=== PATIENT | male | born 1975 | race African-American/Black ===

== ENCOUNTER 2016-12-02 11:00 | Inpatient (IN) | payer OTHER ==
[2016-12-02 15:01] VITALS: BMI 31.4
--- NOTE | 2016-12-02 17:41 | HP ---
COWS - Scale Resting Pulse: 2= [place] 101-120 Sweatin= Chills/Flushing Restless Observation: 3= Extraneous Movement Pupil Size: 0= Normal to Room Light Bone or Joint Aches: 2= Severe Diffuse Aches Runny Nose/ Eye Tearin= Runny Nose/Eyes GI Upset > 30mins: 2= Nausea/Diarrhea Tremor Observation: 2= Slight Tremor Visible Yawning Observation: 0= None Anxiety or Irritability: 2=Irritable/Anxious Goose Flesh Skin: 0=Smooth Skin COWS Score: 16 CIWA Score - CIWA Score Nausea/Vomitin-Mild Nausea/No Vomiting Muscle Tremors: 4-Moderate,w/Arms Extend Anxiety: 4-Mod. Anxious/Guarded Agitation: 4-Moderately Restless Paroxysmal Sweats: 1-Minimal Palms Moist Orientation: 1-Uncertain about Date Tacttile Disturbances: 0-None Auditory Disturbances: 0-None Visual Disturbances: 0-None Headache: 1-Very Mild CIWA-Ar Total Score: 16 Admission [facility] - HPI Chief Complaint: WITHDRAWAL SX Allergies/Adverse Reactions: Allergies Allergy/AdvReac Type Severity Reaction Status Date / Time No Known Allergies Allergy Verified 12/02/16 17:24 History of Present Illness: 41 YEARS OLD MALE WITH LONG HISTORY OF ALCOHOL OPIOID NICOTINE DEPENDENCE DENIES MEDICAL ISSUE HAS BIPOLAR II IS ADMITTED TO DETOX Exam Limitations: No Limitations - Ebola screening Have you traveled outside of the country in the last 21 days: No Have you had contact with anyone from an Ebola affected area: No Have you been sick,other than usual withdrawal symptoms: No Do you have a fever: No - Review of Systems Constitutional: Chills, Changes in sleep, Weight Stable EENT: reports: No Symptoms Reported Respiratory: reports: No Symptoms reported Cardiac: reports: No Symptoms Reported GI: reports: Nausea, Poor Fluid Intake, Indigestion, Abdominal cramping : reports: No Symptoms Reported Musculoskeletal: reports: Back Pain, Joint Pain, Muscle Pain, Neck Pain Integumentary: reports: No Symptoms Reported Neuro: reports: Tremors Endocrine: reports: No Symptoms Reported Hematology: reports: No Symptoms Reported Psychiatric: reports: Judgement Intact, Anxious, Depressed Other Systems: Reviewed and Negative Patient History - Patient Medical History Hx Anemia: No Hx Asthma: No Hx Chronic Obstructive Pulmonary Disease (COPD): No Hx Cancer: No Hx Cardiac Disorders: No Hx Congestive Heart Failure: No Hx Hypertension: No Hx Hypercholesterolemia: No Hx Pacemaker: No HX Cerebrovascular Accident: No Hx Seizures: No Hx Dementia: No Hx Diabetes: No Hx Gastrointestinal Disorders: No Hx Liver Disease: No Hx Genitourinary Disorders: No Hx Sexually Transmitted Disorders: No Hx Renal Disease (ESRD): No Hx Thyroid Disease: No Hx Human Immunodeficiency Virus (HIV): No Hx Hepatitis C: No Hx Depression: No Hx Suicide Attempt: No Hx Bipolar Disorder: Yes Hx Schizophrenia: No - Patient Surgical History Past Surgical History: No - PPD History Previous Implant?: Yes Documented Results: Negative w/o proof Implanted On Prior [facility] Admission?: No PPD to be Administered?: Yes - Smoking Cessation Smoking history: Current every day smoker Have you smoked in the past 12 months: Yes Aproximately how many cigarettes per day: 15 Cigars Per Day: 0 Hx Chewing Tobacco Use: No Initiated information on smoking cessation: Yes 'Breaking Loose' booklet given: 12/02/16 - Substance & Tx. History Hx Alcohol Use: Yes Hx Substance Use: Yes Substance Use Type: Alcohol, Marijuana, Opiates Hx Substance Use Treatment: Yes - Substances Abused Heroin Route: Inhalation Frequency: Daily Amount used: 4-10 bags Age of first use: 35 Date of Last Use: 12/01/16 Alcohol Route: Oral Frequency: Daily Amount used: 3 24 oz beer/ 1 pint vodka Age of first use: 18 Date of Last Use: 12/02/16 Family Disease History - Family Disease History Family Disease History: Diabetes: Father, Mother, [place]: Grandparent () Admission Physical Exam S - Vital Signs Vital Signs: Vital Signs - 24 hr 12/02/16 14:58 Temperature 98.5 F Pulse Rate 115 H Respiratory 20 Rate Blood Pressure 132/81 - Physical General Appearance: Yes: Appropriately Dressed, Obese, Tremorous, Irritable, Sweating, Anxious HEENTM: Yes: Hearing grossly Normal, Normal ENT Inspection, Normocephalic, Normal Voice Respiratory: Yes: Chest Non-Tender, Lungs Clear, Normal Breath Sounds, No Respiratory Distress, No Accessory Muscle Use Neck: Yes: Supple, Trachea in good position Breast: Yes: Breasts Symetrical Cardiology: Yes: Regular Rhythm, S1, S2, Tachycardia Abdominal: Yes: Non Tender, Soft Genitourinary: Yes: Within Normal Limits Back: Yes: Normal Inspection Musculoskeletal: Yes: full range of Motion, Gait Steady, Back pain, Muscle Pain Extremities: Yes: Normal Inspection, Normal Range of Motion, Non-Tender, Tremors Neurological: Yes: Alert, Motor Strength 5/5, Normal Response, Depressed Affect Integumentary: Yes: Warm Lymphatic: Yes: Within Normal Limits - Diagnostic (1) Alcohol dependence with uncomplicated withdrawal Current Visit: Yes Status: Acute (2) Opioid dependence with withdrawal Current Visit: Yes Status: Acute (3) Nicotine dependence Current Visit: Yes Status: Acute Qualifiers: Nicotine product type: cigarettes Substance use status: in withdrawal Qualified Code(s): F17.213 - Nicotine dependence, cigarettes, with withdrawal (4) GERD (gastroesophageal reflux disease) Current Visit: Yes Status: Chronic Qualifiers: Esophagitis presence: without esophagitis Qualified Code(s): K21.9 - Gastro-esophageal reflux disease without esophagitis (5) Bipolar II disorder Current Visit: Yes Status: Suspected Comment: [place] LEVEL PENDING BHS Breath Alcohol Content Breath Alcohol Content: 0 Urine Drug Screen - Results Drug Screen Negative: No Urine Drug Screen Results: THC-Marijuana, OPI-Opiates
[2016-12-02] MEDS ORDERED: MENTHOL/PHENOL 1 EACH UD MM PRN (17:46)
[2016-12-02] MEDS ORDERED: guaiFENesin/D-METHORPHAN HB 10 ML UNIT-DOSE CUPS PO PRN (17:46)
[2016-12-02] MEDS ORDERED: METHADONE HCL 10 MG TABLET (FOR DETOX USE ONLY) PO ONE ×2 (17:46→23:00)
[2016-12-02] MEDS ORDERED: MAGNESIUM HYDROX 2400MG/30ML ORAL SUSPENSION 30 ML CUP PO PRN (17:46)
[2016-12-02] MEDS ORDERED: NICOTINE POLACRILEX 4 MG GUM BC PRN (17:46)
[2016-12-02] MEDS ORDERED: MAGNESIUM CITRATE 300 ML BOTTLE PO PRN (17:46)
[2016-12-02] MEDS ORDERED: P-EPHED 60MG/TRIPROLIDI 2.5MG TABLET PO PRN (17:46)
[2016-12-02] MEDS ORDERED: MAG HYDROX/AL HYDROX/SIMETH 30 ML UNIT-DOSE CUP PO PRN (17:46)
[2016-12-02] MEDS ORDERED: LOPERAMIDE HCL 2 MG CAPSULE PO PRN (17:46)
[2016-12-02] MEDS ORDERED: NICOTINE 21 MG/24 HOURS TOPICAL PATCH TD PRN (18:30)
[2016-12-02] MEDS ORDERED: METHADONE HCL 10 MG TABLET (FOR DETOX USE ONLY) ONE (19:54)
[2016-12-02] MEDS: chlordiazePOXIDE HCL 25 MG CAPSULE PO PRN (19:57)
[2016-12-02] MEDS: chlordiazePOXIDE HCL 25 MG CAPSULE PO SCH (22:12)
[2016-12-02] MEDS: RANITIDINE HCL 150 MG TABLET (FP) PO SCH (22:12)
[2016-12-02] MEDS: THIAMINE HCL 100 MG TABLET (FP) PO SCH (22:12)
[2016-12-02] MEDS: diphenhydrAMINE HCL 50 MG CAPSULE PO PRN (22:14)
[2016-12-02] MEDS: ACETAMINOPHEN 325 MG TABLET (FP) PO PRN (22:15)
[2016-12-03 01:57] LABS: URINE APPEARANCE CLOUDY; URINE BILIRUBIN NEGATIVE (NEGATIVE); URINE BLOOD NEGATIVE (NEGATIVE); URINE COLOR YELLOW; URINE GLUCOSE (UA) NEGATIVE (NEGATIVE); URINE KETONE NEGATIVE (NEGATIVE); URINE LEUK ESTERASE NEGATIVE (NEGATIVE); URINE NITRITE NEGATIVE (NEGATIVE); URINE PROTEIN NEGATIVE (NEGATIVE); URINE UROBILINOGEN NEGATIVE E.U./dl (0.2-1.0)
[2016-12-03] MEDS: chlordiazePOXIDE HCL 25 MG CAPSULE PO PRN (02:39)
[2016-12-03] MEDS: chlordiazePOXIDE HCL 25 MG CAPSULE PO SCH ×4 (06:06→22:45)
[2016-12-03] MEDS: ACETAMINOPHEN 325 MG TABLET (FP) PO PRN ×2 (09:24→22:23)
[2016-12-03] MEDS ORDERED: METHADONE HCL 10 MG TABLET (FOR DETOX USE ONLY) PO SCH (10:00)
[2016-12-03] MEDS: PRENATAL VITAMINS W/ FOLIC ACID TABLET (FP) PO SCH (10:14)
[2016-12-03] MEDS: RANITIDINE HCL 150 MG TABLET (FP) PO SCH ×2 (10:14→22:24)
[2016-12-03] MEDS: CYCLOBENZAPRINE HCL 10 MG TABLET (FP) PO PRN ×2 (10:15→22:27)
[2016-12-03 10:45] LABS: MCH 23.1 pg (25.7-33.7); MCHC 31.4 g/dl (32.0-35.9); MEAN CELL VOLUME 73.4 fl (80-96); MEAN PLT VOLUME 8.6 fl (7.5-11.1); PLATELET COUNT 261 K/MM3 (134-434); RDW 16.2 % (11.9-15.9); WHITE BLOOD COUNT 11.8 K/mm3 (4.0-10.0)
[2016-12-03 11:31] LABS: ALK PHOS 60 U/L (45-117); ANION GAP 11 (8-16); BILIRUBIN,TOTAL 0.5 mg/dL (0.2-1.0); CALCIUM 9.6 mg/dL (8.5-10.1); CO2 26 mmol/L (21-32); COCKROFT - GAULT 127.3; CREATININE 1.2 mg/dL (0.7-1.3); GLUCOSE,RANDOM 76 mg/dL (74-106); SGOT/AST 22 U/L (15-37); SGPT/ALT 25 U/L (12-78)
--- NOTE | 2016-12-03 12:54 | CONSULT ---
[facility] Psychiatric Consult - Data Date of interview: 12/03/16 Admission source: [facility] Identifying data: First admission to [facility] for this 41 y/o AA male seeking detox treatment for alcohol,heroin,cocaine and marijuana dependence.Patient is single,a father of two,homeless,unemployed and supported on [facility] benefits. Substance Abuse History: - Smoking Cessation. Smoking history: Current every day smoker. Have you smoked in the past 12 months: Yes. Aproximately how many cigarettes per day: 15. Cigars Per Day: 0. Hx Chewing Tobacco Use: No. Initiated information on smoking cessation: Yes. 'Breaking Loose' booklet given : 12/02/16. - Substance & Tx. History. Hx Alcohol Use: Yes. Hx Substance Use : Yes. Substance Use Type: Alcohol, Marijuana, Opiates. Hx Substance Use Treatment: Yes. - Substances Abused. Heroin. Route: Inhalation. Frequency : Daily. Amount used: 4-10 bags. Age of first use: 35. Date of Last Use: . Alcohol. Route: Oral. Frequency: Daily. Amount used: 3 24 oz beer / 1 pint vodka. Age of first use: 18. Date of Last Use: 12/02/16. Confirmed by patient. Medical History: Patient endorses good general health. Psychiatric History: Patient admits to a history of five psychiatric hospitalizations,mostly at [facility] in [place], [place].He is also known to [address]).Last hospitalized 10 years ago as per self- report.Diagnosed with Schizoaffective Disorder.Maintained on a regimen of seroquel 300 mg/hs + Depakote 500 mg po bid.Mr Hall is followed at the [facility] clinic.He claims " fair " adherence to medications and attendance to sessions.No reported history of suicde attempts. Physical/Sexual Abuse/Trauma History: Patient denies. Additional Comment: Urine Drug Screen Results: THC-Marijuana, OPI-Opiates.Noted. Mental Status Exam - Mental Status Exam Alert and Oriented to: Time, Place, Person Cognitive Function: Good Patient Appearance: Well Groomed Mood: Withdrawn, Anxious, Apprehensive Affect: Mood Congruent Patient Behavior: Fatigued, Cooperative Speech Pattern: Clear Voice Loudness: Normal Thought Process: Goal Oriented Thought Disorder: Not Present Hallucinations: Denies Suicidal Ideation: Denies Homicidal Ideation: Denies Insight/Judgement: Poor Sleep: Poorly, Difficulty falling asleep Appetite: Good Muscle strength/Tone: Normal Gait/Station: Normal Psychiatric Findings - Problem List ([place] 1, 2,3) (1) Schizoaffective disorder Current Visit: Yes Status: Chronic (2) Alcohol dependence with uncomplicated withdrawal Current Visit: Yes Status: Acute (3) Opioid dependence with withdrawal Current Visit: Yes Status: Acute (4) Nicotine dependence Current Visit: Yes Status: Acute Qualifiers: Nicotine product type: cigarettes Substance use status: in withdrawal Qualified Code(s): F17.213 - Nicotine dependence, cigarettes, with withdrawal (5) Marijuana abuse Current Visit: Yes Status: Acute (6) GERD (gastroesophageal reflux disease) Current Visit: Yes Status: Chronic Qualifiers: Esophagitis presence: without esophagitis Qualified Code(s): K21.9 - Gastro-esophageal reflux disease without esophagitis - Initial Treatment Plan Initial Treatment Plan: Psychoeducation.Detoxification in progress.Medications : depakote 500 mg po bid + seroquel 200 mg po hs (purposedly reduced in anticipation of possible oversedation from drug-drug interactions).Will titrate as per evidence of tolerability/clinical necessity.Side effects/benefits of both drugs are discussed with the patient.He is in agreement with this careplan.Eager to resume his medications.Valproic acid level is pending.Will follow.Medications are verified through survey of recent pharmacy claims ( evidence of scripts for seroquel/depakote on 11/29/16 @ [facility] from Dr Yari Miller).NO scripts needed at discharge.
--- NOTE | 2016-12-03 12:56 | PN ---
S CIWA - CIWA Score Nausea/Vomitin Muscle Tremors: 3 Anxiety: 3 Agitation: 3 Paroxysmal Sweats: 3 Orientation: 0-Oriented Tacttile Disturbances: 1-Very Mild Itch/Numbness Auditory Disturbances: 0-None Visual Disturbances: 2-Mild Sensitivity Headache: 2-Mild CIWA-Ar Total Score: 20 BHS COWS - Scale Resting Pulse: 1= [place] 81-100 Sweatin=Flushed/Facial Moisture Restless Observation: 3= Extraneous Movement Pupil Size: 0= Normal to Room Light Bone or Joint Aches: 2= Severe Diffuse Aches Runny Nose/ Eye Tearin= Nasal Congestion GI Upset > 30mins: 2= Nausea/Diarrhea Tremor Observation of Outstretched Hands: 2= Slight Tremor Visible Yawning Observation: 1= 1-2x During Session Anxiety or Irritability: 2=Irritable/Anxious Goose Flesh Skin: 3=Piloerection COWS Score: 19 BHS Progress Note (SOAP) Subjective: shakes, sweats, irritability, interrupted sleep, muscle pain/spasm Objective: 12/03/16 12:54 Vital Signs - 8 hr 12/03/16 12/03/16 06:29 10:25 Temperature 97.7 F 98.2 F Pulse Rate 84 103 H Respiratory 18 20 Rate Blood Pressure 129/90 142/86 Laboratory Last Values WBC 11.8 K/mm3 (4.0-10.0) H 12/03/16 07:50 RBC 5.50 M/mm3 (4.00-5.60) 12/03/16 07:50 Hgb 12.7 GM/dL (11.7-16.9) 12/03/16 07:50 Hct 40.3 % (35.4-49) 12/03/16 07:50 MCV 73.4 fl (80-96) L 12/03/16 07:50 MCHC 31.4 g/dl (32.0-35.9) L 12/03/16 07:50 RDW 16.2 % (11.9-15.9) H 12/03/16 07:50 Plt Count 261 K/MM3 (134-434) 12/03/16 07:50 MPV 8.6 fl (7.5-11.1) 12/03/16 07:50 Sodium 137 mmol/L (136-145) 12/03/16 07:50 Potassium 4.0 mmol/L (3.5-5.1) 12/03/16 07:50 Chloride 100 mmol/L (98-107) 12/03/16 07:50 Carbon Dioxide 26 mmol/L (21-32) 12/03/16 07:50 Anion Gap 11 (8-16) 12/03/16 07:50 BUN 14 mg/dL (7-18) 12/03/16 07:50 Creatinine 1.2 mg/dL (0.7-1.3) 12/03/16 07:50 Creat Clearance w eGFR > 60 (>60) 12/03/16 07:50 Random Glucose 76 mg/dL (74-106) 12/03/16 07:50 Calcium 9.6 mg/dL (8.5-10.1) 12/03/16 07:50 Total Bilirubin 0.5 mg/dL (0.2-1.0) 12/03/16 07:50 AST 22 U/L (15-37) 12/03/16 07:50 ALT 25 U/L (12-78) 12/03/16 07:50 Alkaline Phosphatase 60 U/L (45-117) 12/03/16 07:50 Total Protein 8.0 g/dl (6.4-8.2) 12/03/16 07:50 Albumin 4.0 g/dl (3.4-5.0) 12/03/16 07:50 Urine Color Yellow 12/02/16 00:35 Urine Appearance Cloudy 12/02/16 00:35 Urine pH 5.0 (5.0-8.0) 12/02/16 00:35 Urine Protein Negative (NEGATIVE) 12/02/16 00:35 Urine Glucose (UA) Negative (NEGATIVE) 12/02/16 00:35 Urine Ketones Negative (NEGATIVE) 12/02/16 00:35 Urine Blood Negative (NEGATIVE) 12/02/16 00:35 Urine Nitrite Negative (NEGATIVE) 12/02/16 00:35 Urine Bilirubin Negative (NEGATIVE) 12/02/16 00:35 Urine Urobilinogen Negative E.U./dl (0.2-1.0) 12/02/16 00:35 Ur Leukocyte Esterase Negative (NEGATIVE) 12/02/16 00:35 Labs noted, slight elevation in the white count Assessment: 12/03/16 12:55 withdrawal sx leukocytosis Plan: continue detox repeat cbc
[2016-12-03 15:08] LABS: HIV 1 & 2 AB NEGATIVE; HIV 1 AGp24 NEGATIVE
[2016-12-03] MEDS ORDERED: hydrOXYzine PAMOATE 50 MG CAPSULE (FP) PO PRN (20:32)
[2016-12-03] MEDS: THIAMINE HCL 100 MG TABLET (FP) PO SCH (22:22)
[2016-12-03] MEDS: cloNIDine HCL 0.1 MG TABLET PO PRN (22:23)
[2016-12-03] MEDS: QUEtiapine FUMARATE 200 MG TABLET PO SCH (22:24)
[2016-12-03] MEDS: DIVALPROEX SODIUM 500 MG TABLET E.C. PO SCH (22:24)
[2016-12-03] MEDS: diphenhydrAMINE HCL 50 MG CAPSULE PO PRN (22:26)
[2016-12-04] MEDS: CYCLOBENZAPRINE HCL 10 MG TABLET (FP) PO PRN ×3 (06:01→22:24)
[2016-12-04] MEDS: chlordiazePOXIDE HCL 25 MG CAPSULE PO SCH ×3 (06:01→17:20)
[2016-12-04] MEDS: METHADONE HCL 5 MG TABLET (FOR DETOX USE ONLY) PO SCH (10:15)
[2016-12-04] MEDS: DIVALPROEX SODIUM 500 MG TABLET E.C. PO SCH ×2 (10:15→22:24)
[2016-12-04] MEDS: RANITIDINE HCL 150 MG TABLET (FP) PO SCH ×2 (10:15→22:24)
[2016-12-04] MEDS: PRENATAL VITAMINS W/ FOLIC ACID TABLET (FP) PO SCH (10:15)
[2016-12-04] MEDS: cloNIDine HCL 0.1 MG TABLET PO PRN (14:38)
--- NOTE | 2016-12-04 15:18 | PN ---
[facility] CIWA - CIWA Score Nausea/Vomitin-Int. Nausea w/Dry Heave Muscle Tremors: 4-Moderate,w/Arms Extend Anxiety: 4-Mod. Anxious/Guarded Agitation: 4-Moderately Restless Paroxysmal Sweats: 3 Orientation: 0-Oriented Tacttile Disturbances: 1-Very Mild Itch/Numbness Auditory Disturbances: 0-None Visual Disturbances: 0-None Headache: 2-Mild CIWA-Ar Total Score: 22 BHS COWS - Scale Resting Pulse: 2= [place] 101-120 Sweatin= Chills/Flushing Restless Observation: 3= Extraneous Movement Pupil Size: 1= Pupils >than Normal Bone or Joint Aches: 2= Severe Diffuse Aches Runny Nose/ Eye Tearin= Runny Nose/Eyes GI Upset > 30mins: 3= Vomiting/Diarrhea Tremor Observation of Outstretched Hands: 2= Slight Tremor Visible Yawning Observation: 1= 1-2x During Session Anxiety or Irritability: 2=Irritable/Anxious Goose Flesh Skin: 0=Smooth Skin COWS Score: 19 [facility] Progress Note (SOAP) Subjective: Nausea, diarrhea, anxious, interrupted sleep, muscle spasm Objective: 12/04/16 15:15 Last Vital Signs Temp Pulse Resp BP Pulse Ox 97.8 F 103 H 20 135/90 12/04/16 13:50 12/04/16 13:50 12/04/16 13:50 12/04/16 13:50 Laboratory Tests 12/02/16 12/03/16 12/03/16 00:35 07:50 07:50 WBC 11.8 H RBC 5.50 Hgb 12.7 Hct 40.3 MCV 73.4 L MCHC 31.4 L RDW 16.2 H Plt Count 261 MPV 8.6 Sodium Potassium Chloride Carbon Dioxide Anion Gap BUN Creatinine Creat Clearance w eGFR Random Glucose Calcium Total Bilirubin AST ALT Alkaline Phosphatase Total Protein Albumin Urine Color Yellow Urine Appearance Cloudy Urine pH 5.0 Ur Specific [place] 1.020 Urine Protein Negative Urine Glucose (UA) Negative Urine Ketones Negative Urine Blood Negative Urine Nitrite Negative Urine Bilirubin Negative Urine Urobilinogen Negative Ur Leukocyte Esterase Negative Valproic Acid RPR Titer HIV 1&2 Antibody Screen Negative HIV P24 Antigen Negative 12/03/16 12/03/16 12/03/16 07:50 07:50 07:50 WBC RBC Hgb Hct MCV MCHC RDW Plt Count MPV Sodium 137 Potassium 4.0 Chloride 100 Carbon Dioxide 26 Anion Gap 11 BUN 14 Creatinine 1.2 Creat Clearance w eGFR > 60 Random Glucose 76 Calcium 9.6 Total Bilirubin 0.5 AST 22 ALT 25 Alkaline Phosphatase 60 Total Protein 8.0 Albumin 4.0 Urine Color Urine Appearance Urine pH Ur Specific [place] Urine Protein Urine Glucose (UA) Urine Ketones Urine Blood Urine Nitrite Urine Bilirubin Urine Urobilinogen Ur Leukocyte Esterase Valproic Acid 6.283 L RPR Titer Nonreactive HIV 1&2 Antibody Screen HIV P24 Antigen Labs noted: wbc 11.8 Assessment: 12/04/16 15:17 Withdrawal symptoms Noted with leukocytosis Plan: Continue detox, encouraged to drink lots of water Leukocytosis: asymptomatic, repeat CBC
[2016-12-04] MEDS: QUEtiapine FUMARATE 200 MG TABLET PO SCH (22:24)
[2016-12-04] MEDS: THIAMINE HCL 100 MG TABLET (FP) PO SCH (22:24)
[2016-12-04] MEDS: chlordiazePOXIDE 5 MG CAPSULE PO SCH (22:24)
[2016-12-04] MEDS: diphenhydrAMINE HCL 50 MG CAPSULE PO PRN (22:25)
[2016-12-05] MEDS: CYCLOBENZAPRINE HCL 10 MG TABLET (FP) PO PRN ×2 (06:04→22:12)
[2016-12-05] MEDS: chlordiazePOXIDE 5 MG CAPSULE PO SCH ×3 (06:05→17:06)
[2016-12-05] MEDS: DIVALPROEX SODIUM 500 MG TABLET E.C. PO SCH ×2 (10:00→22:12)
[2016-12-05] MEDS: PRENATAL VITAMINS W/ FOLIC ACID TABLET (FP) PO SCH (10:00)
[2016-12-05] MEDS: METHADONE HCL 5 MG TABLET (FOR DETOX USE ONLY) PO SCH (10:00)
[2016-12-05] MEDS: RANITIDINE HCL 150 MG TABLET (FP) PO SCH ×2 (10:00→22:12)
[2016-12-05] MEDS: ACETAMINOPHEN 325 MG TABLET (FP) PO PRN (10:01)
--- NOTE | 2016-12-05 11:39 | EKG ---
Test Reason : Blood Pressure : / mmHG Vent. Rate : 087 BPM Atrial Rate : 087 BPM P-R Int : 176 ms QRS Dur : 106 ms QT Int : 378 ms P-R-T Axes : 062 -11 040 degrees QTc Int : 454 ms NORMAL SINUS RHYTHM POSSIBLE LEFT ATRIAL ENLARGEMENT INCOMPLETE RIGHT BUNDLE BRANCH BLOCK BORDERLINE ECG NO PREVIOUS ECGS AVAILABLE Confirmed by CLAYTON FARFAN MD ([id number]) on 12/05/2016 11:38:55 AM Referred By: Josh Vee Confirmed By:CLAYTON FARFAN MD
[2016-12-05 14:14] LABS: BASOPHIL 0.6 % (0-2.0); EOSINOPHIL 11.7 % (0-4.5); MCH 24.5 pg (25.7-33.7); MEAN CELL VOLUME 74.1 fl (80-96); MEAN PLT VOLUME 9.1 fl (7.5-11.1); NEUTROPHILS 33.3 % (42.8-82.8); PLATELET COUNT 237 K/MM3 (134-434); RDW 15.9 % (11.9-15.9); WHITE BLOOD COUNT 8.3 K/mm3 (4.0-10.0)
--- NOTE | 2016-12-05 14:15 | PN ---
S Progress Note (SOAP) Subjective: Stomach ache, back pain, anxious, interrupted sleep Objective: 12/05/16 14:13 Last Vital Signs Temp Pulse Resp BP Pulse Ox 97.4 F L 78 18 125/83 12/05/16 13:35 12/05/16 13:35 12/05/16 13:35 12/05/16 13:35 Laboratory Tests 12/02/16 12/03/16 12/03/16 00:35 07:50 07:50 WBC 11.8 H RBC 5.50 Hgb 12.7 Hct 40.3 MCV 73.4 L MCHC 31.4 L RDW 16.2 H Plt Count 261 MPV 8.6 Sodium Potassium Chloride Carbon Dioxide Anion Gap BUN Creatinine Creat Clearance w eGFR Random Glucose Calcium Total Bilirubin AST ALT Alkaline Phosphatase Total Protein Albumin Urine Color Yellow Urine Appearance Cloudy Urine pH 5.0 Ur Specific [place] 1.020 Urine Protein Negative Urine Glucose (UA) Negative Urine Ketones Negative Urine Blood Negative Urine Nitrite Negative Urine Bilirubin Negative Urine Urobilinogen Negative Ur Leukocyte Esterase Negative Valproic Acid RPR Titer HIV 1&2 Antibody Screen Negative HIV P24 Antigen Negative 12/03/16 12/03/16 12/03/16 07:50 07:50 07:50 WBC RBC Hgb Hct MCV MCHC RDW Plt Count MPV Sodium 137 Potassium 4.0 Chloride 100 Carbon Dioxide 26 Anion Gap 11 BUN 14 Creatinine 1.2 Creat Clearance w eGFR > 60 Random Glucose 76 Calcium 9.6 Total Bilirubin 0.5 AST 22 ALT 25 Alkaline Phosphatase 60 Total Protein 8.0 Albumin 4.0 Urine Color Urine Appearance Urine pH Ur Specific [place] Urine Protein Urine Glucose (UA) Urine Ketones Urine Blood Urine Nitrite Urine Bilirubin Urine Urobilinogen Ur Leukocyte Esterase Valproic Acid 6.283 L RPR Titer Nonreactive HIV 1&2 Antibody Screen HIV P24 Antigen Labs noted Assessment: 12/05/16 14:13 Withdrawal symptoms Noted with leukocytosis Plan: Continue detox Leukocytosis: asymptomatic, follow up on CBC results (in progress)
[2016-12-05] MEDS: chlordiazePOXIDE HCL 10 MG CAPSULE PO SCH (22:11)
[2016-12-05] MEDS: THIAMINE HCL 100 MG TABLET (FP) PO SCH (22:11)
[2016-12-05] MEDS: QUEtiapine FUMARATE 200 MG TABLET PO SCH (22:12)
[2016-12-05] MEDS: cloNIDine HCL 0.1 MG TABLET PO PRN (22:12)
[2016-12-05] MEDS: diphenhydrAMINE HCL 50 MG CAPSULE PO PRN (22:13)
[2016-12-06] MEDS: chlordiazePOXIDE HCL 10 MG CAPSULE PO SCH ×3 (05:45→17:05)
[2016-12-06] MEDS ORDERED: METHADONE HCL 10 MG TABLET (FOR DETOX USE ONLY) PO SCH (10:00)
[2016-12-06] MEDS: cloNIDine HCL 0.1 MG TABLET PO PRN ×2 (10:19→22:09)
[2016-12-06] MEDS: RANITIDINE HCL 150 MG TABLET (FP) PO SCH ×2 (10:19→22:09)
[2016-12-06] MEDS: DIVALPROEX SODIUM 500 MG TABLET E.C. PO SCH ×2 (10:19→22:09)
[2016-12-06] MEDS: PRENATAL VITAMINS W/ FOLIC ACID TABLET (FP) PO SCH (10:19)
[2016-12-06] MEDS: CYCLOBENZAPRINE HCL 10 MG TABLET (FP) PO PRN ×2 (10:22→17:22)
--- NOTE | 2016-12-06 10:53 | PN ---
S Progress Note (SOAP) Subjective: ANXIETY,TREMORS,SWEATS,IRRITABILITY,AGITATION, SLIGHTLY DROWSY BUT SEEKING MORE MEDICATIONS. Objective: 12/06/16 10:54 Vital Signs Temperature 97.8 F 12/06/16 09:23 Pulse Rate 100 H 12/06/16 09:23 Respiratory Rate 20 12/06/16 09:23 Blood Pressure 121/78 12/06/16 09:23 O2 Sat by Pulse Oximetry (%) Laboratory Last Values WBC 8.3 K/mm3 (4.0-10.0) 12/05/16 07:12 RBC 5.20 M/mm3 (4.00-5.60) 12/05/16 07:12 Hgb 12.7 GM/dL (11.7-16.9) 12/05/16 07:12 Hct 38.6 % (35.4-49) 12/05/16 07:12 MCV 74.1 fl (80-96) L 12/05/16 07:12 MCHC 33.0 g/dl (32.0-35.9) 12/05/16 07:12 RDW 15.9 % (11.9-15.9) 12/05/16 07:12 Plt Count 237 K/MM3 (134-434) 12/05/16 07:12 MPV 9.1 fl (7.5-11.1) 12/05/16 07:12 Neutrophils % 33.3 % (42.8-82.8) L 12/05/16 07:12 Lymphocytes % 44.3 % (8-40) H 12/05/16 07:12 Monocytes % 10.1 % (3.8-10.2) 12/05/16 07:12 Eosinophils % 11.7 % (0-4.5) H 12/05/16 07:12 Basophils % 0.6 % (0-2.0) 12/05/16 07:12 Sodium 137 mmol/L (136-145) 12/03/16 07:50 Potassium 4.0 mmol/L (3.5-5.1) 12/03/16 07:50 Chloride 100 mmol/L (98-107) 12/03/16 07:50 Carbon Dioxide 26 mmol/L (21-32) 12/03/16 07:50 Anion Gap 11 (8-16) 12/03/16 07:50 BUN 14 mg/dL (7-18) 12/03/16 07:50 Creatinine 1.2 mg/dL (0.7-1.3) 12/03/16 07:50 Creat Clearance w eGFR > 60 (>60) 12/03/16 07:50 Random Glucose 76 mg/dL (74-106) 12/03/16 07:50 Calcium 9.6 mg/dL (8.5-10.1) 12/03/16 07:50 Total Bilirubin 0.5 mg/dL (0.2-1.0) 12/03/16 07:50 AST 22 U/L (15-37) 12/03/16 07:50 ALT 25 U/L (12-78) 12/03/16 07:50 Alkaline Phosphatase 60 U/L (45-117) 12/03/16 07:50 Total Protein 8.0 g/dl (6.4-8.2) 12/03/16 07:50 Albumin 4.0 g/dl (3.4-5.0) 12/03/16 07:50 Urine Color Yellow 12/02/16 00:35 Urine Appearance Cloudy 12/02/16 00:35 Urine pH 5.0 (5.0-8.0) 12/02/16 00:35 Ur Specific [place] 1.020 (1.005-1.025) 12/02/16 00:35 Urine Protein Negative (NEGATIVE) 12/02/16 00:35 Urine Glucose (UA) Negative (NEGATIVE) 12/02/16 00:35 Urine Ketones Negative (NEGATIVE) 12/02/16 00:35 Urine Blood Negative (NEGATIVE) 12/02/16 00:35 Urine Nitrite Negative (NEGATIVE) 12/02/16 00:35 Urine Bilirubin Negative (NEGATIVE) 12/02/16 00:35 Urine Urobilinogen Negative E.U./dl (0.2-1.0) 12/02/16 00:35 Ur Leukocyte Esterase Negative (NEGATIVE) 12/02/16 00:35 Valproic Acid 6.283 ug/ml (50-100) L 12/03/16 07:50 RPR Titer Nonreactive (NONREACTIVE) 12/03/16 07:50 HIV 1&2 Antibody Screen Negative 12/03/16 07:50 HIV P24 Antigen Negative 12/03/16 07:50 Assessment: 12/06/16 10:54 WITHDRAWAL SX Plan: CONTINUE DETOX
[2016-12-06] MEDS: QUEtiapine FUMARATE 200 MG TABLET PO SCH (22:09)
[2016-12-06] MEDS: THIAMINE HCL 100 MG TABLET (FP) PO SCH (22:10)
[2016-12-06] MEDS: ACETAMINOPHEN 325 MG TABLET (FP) PO PRN (22:11)
[2016-12-07] MEDS ORDERED: METHADONE HCL 5 MG TABLET (FOR DETOX USE ONLY) PO SCH (06:00)
[2016-12-07] MEDS: CYCLOBENZAPRINE HCL 10 MG TABLET (FP) PO PRN (06:00)
[2016-12-07 06:42] VITALS: BP 131/91; PULSE 92; TEMP 97.4
[2016-12-07] MEDS: DIVALPROEX SODIUM 500 MG TABLET E.C. PO SCH (10:10)
[2016-12-07] MEDS: PRENATAL VITAMINS W/ FOLIC ACID TABLET (FP) PO SCH (10:10)
[2016-12-07] MEDS: RANITIDINE HCL 150 MG TABLET (FP) PO SCH (10:10)
--- NOTE | 2016-12-07 11:09 | DS ---
[facility] Detox Discharge Summary Admission Date: 12/02/16 Discharge Date: 12/07/16 - History Present History: Alcohol Dependence, Opioid Dependence Additional Comments: DETOX COMPLETED.ALERT O X 3. NAD. Pertinent Past History: BIPOLAR DISORDER - Physical Exam Results Vital Signs: Vital Signs Temperature 97.4 F L 12/07/16 06:40 Pulse Rate 92 H 12/07/16 06:40 Respiratory Rate 18 12/07/16 06:40 Blood Pressure 131/91 12/07/16 06:40 O2 Sat by Pulse Oximetry (%) Pertinent Admission Physical Exam Findings: WITHDRAWAL SX - Treatment Hospital Course: Detox Protocol Followed, Detoxed Safely, Responded well, Discharged Condition Good - Medication Discharge Medications: Ambulatory Orders Divalproex [Depakote -] 500 mg PO BID 12/02/16 Quetiapine Fumarate [Seroquel -] 300 mg PO HS 12/02/16 - Diagnosis (1) Alcohol dependence with uncomplicated withdrawal Current Visit: Yes Status: Acute (2) Nicotine dependence Current Visit: Yes Status: Acute Qualifiers: Nicotine product type: cigarettes Substance use status: in withdrawal Qualified Code(s): F17.213 - Nicotine dependence, cigarettes, with withdrawal (3) Opioid dependence with withdrawal Current Visit: Yes Status: Acute (4) Bipolar II disorder Current Visit: Yes Status: Suspected - AMA Did Patient Leave Against Medical Advice: No
[2016-12-07] MEDS ORDERED: TRIMETHOBENZAMIDE HCL 200MG/2ML INJ IM PRN (13:00)
[2016-12-07] MEDS ORDERED: ONDANSETRON *ODT* 4 MG TABLET SL PRN (13:00)
== END 2016-12-07 14:44 | disposition home or self-care (01) | DRG 773 ==
LOC: YASAS 11:00 → Y3N 19:02
PROVIDERS: ADMIT Internal Medicine; ATTEND Internal Medicine
PROC: HZ2ZZZZ Detoxification Services for Substance Abuse Treatment (ICD-10-PCS; principal; 2016-12-02)
DX: F11.23 Opioid dependence with withdrawal (principal); F10.230 Alcohol dependence with withdrawal, uncomplicated; F12.10 Cannabis abuse, uncomplicated; F17.213 Nicotine dependence, cigarettes, with withdrawal; F31.81 Bipolar II disorder; F25.9 Schizoaffective disorder, unspecified; D72.829 Elevated white blood cell count, unspecified; K21.9 Gastro-esophageal reflux disease without esophagitis; E66.9 Obesity, unspecified; Z68.31 Body mass index [BMI] 31.0-31.9, adult
CPT/HCPCS: 36415; 80053; 80164; 81003; 85025; 85027; 86593; 86803; 87389; 93005; 93010; J0735

== ENCOUNTER 2017-05-31 11:46 | Inpatient (IN) | payer OTHER ==
[2017-05-31 13:01] VITALS: BMI 32.1
--- NOTE | 2017-05-31 14:01 | HP ---
Admission [facility] Chief Complaint: I AM HEREW FOR REHAB FROM ALCOHOL AND COCAINE Allergies/Adverse Reactions: Allergies Allergy/AdvReac Type Severity Reaction Status Date / Time No Known Allergies Allergy Verified 05/31/17 13:53 History of Present Illness: THIS 41 YEARS OLD MALE WITH ALCOHOL AND COCAINE DEPENDENCE,SEEKING REHAB,LAST TREATMENT [facility] 05/26/17 TO 05/31/17 [facility] HISTORY OF SCHIZOAFFECTIVE DISORDER NICOTINE DEPENDENCE NO SIGNIFICANT PERIOD OF SOBRIETY Exam Limitations: No Limitations - Ebola screening Have you traveled outside of the country in the last 21 days: No (N) Have you had contact with anyone from an Ebola affected area: No Have you been sick,other than usual withdrawal symptoms: No Do you have a fever: No - Review of Systems Constitutional: Changes in sleep EENT: reports: No Symptoms Reported Respiratory: reports: No Symptoms reported Cardiac: reports: No Symptoms Reported GI: reports: No Symptoms Reported : reports: No Symptoms Reported Musculoskeletal: reports: No Symptoms Reported Integumentary: reports: No Symptoms Reported Neuro: reports: No Symptoms reported Endocrine: reports: No Symptoms Reported Hematology: reports: No Symptoms Reported Psychiatric: reports: Judgement Intact, Mood/Affect Appropiate, Orientated x3 ( SCHIZOAFFECTIVE DISORDER) Patient History - Patient Medical History Hx Anemia: No Hx Asthma: No Hx Chronic Obstructive Pulmonary Disease (COPD): No Hx Cancer: No Hx Cardiac Disorders: No Hx Congestive Heart Failure: No Hx Hypertension: No Hx Hypercholesterolemia: No Hx Pacemaker: No HX Cerebrovascular Accident: No Hx Seizures: No Hx Dementia: No Hx Diabetes: No Hx Gastrointestinal Disorders: No Hx Liver Disease: No Hx Genitourinary Disorders: No Hx Sexually Transmitted Disorders: No Hx Renal Disease (ESRD): No Hx Thyroid Disease: No Hx Human Immunodeficiency Virus (HIV): No (LAST 05/26 NEGATIVE) Hx Hepatitis C: No Hx Depression: No Hx Suicide Attempt: No Hx Bipolar Disorder: Yes Hx Schizophrenia: No Other Medical History: SCHIZOAFFECTIVE DISORDER,NO SUICIDAL,NO HOMICIDAL - Patient Surgical History Past Surgical History: No - PPD History Previous Implant?: Yes Documented Results: Negative w/o proof Implanted On Prior [facility] Admission?: Yes Date: 12/04/16 Results: O MM PPD to be Administered?: No - Smoking Cessation Smoking history: Current every day smoker Have you smoked in the past 12 months: Yes Aproximately how many cigarettes per day: 15 Cigars Per Day: 0 Hx Chewing Tobacco Use: No Initiated information on smoking cessation: Yes 'Breaking Loose' booklet given: 05/31/17 - Substance & Tx. History Hx Alcohol Use: Yes Hx Substance Use: No Substance Use Type: Cocaine Hx Substance Use Treatment: Yes ([facility] FROM 05/26/17 TO 05/31/17) - Substances Abused Alcohol Route: Oral Frequency: Daily Amount used: 1 PINT MEEK OR VODKA Age of first use: 18 Date of Last Use: 05/26/17 Cocaine Route: Inhalation Frequency: 3-6 times per week Amount used: 40$ Age of first use: 28 Date of Last Use: 05/26/17 Family Disease History - Family Disease History Family Disease History: Diabetes: Father, Mother, [place]: Grandparent () Admission Physical Exam [facility] - Vital Signs Vital Signs: Vital Signs - 24 hr 05/31/17 12:59 Temperature 97.9 F Pulse Rate 80 Respiratory 18 Rate Blood Pressure 137/97 - Physical HEENTM: Yes: Within Normal Limits Respiratory: Yes: Within Normal Limits, Lungs Clear, Normal Breath Sounds Neck: Yes: Within Normal Limits, Supple, Trachea in good position Breast: Yes: Within Normal Limits Cardiology: Yes: Within Normal Limits, Regular Rhythm, Regular Rate, S1, S2 Abdominal: Yes: Within Normal Limits, Normal Bowel Sounds, Non Tender, Flat, Soft Genitourinary: Yes: Within Normal Limits Back: Yes: Within Normal Limits, Normal Inspection Extremities: Yes: Within Normal Limits 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, Fully Oriented, Alert, Motor Strength 5/5 Integumentary: Yes: Within Normal Limits Lymphatic: Yes: Within Normal Limits - Diagnostic (1) Alcohol dependence Current Visit: Yes Status: Acute (2) Cocaine dependence Current Visit: Yes Status: Acute (3) Nicotine dependence Current Visit: No Status: Acute Qualifiers: Nicotine product type: cigarettes Substance use status: in withdrawal Qualified Code(s): F17.213 - Nicotine dependence, cigarettes, with withdrawal (4) Schizoaffective disorder Current Visit: No Status: Chronic Cleared for Admission [facility] - Detox or Rehab Claeared for Rehab Admission: Yes [facility] Breath Alcohol Content Breath Alcohol Content: 0 Urine Drug Screen - Results Drug Screen Negative: No Urine Drug Screen Results: BZO-Benzodiazepines Inpatient Rehab Admission - Initial Determination Are CD services needed?: Yes Free of communicable disease: Yes Not in need of hospitalization: Yes - Rehab Admission Criteria Previous failed treatment: Yes Poor recovery environment: Yes Comorbidities: Yes Patient is meeting Inpatient Rehab admission criteria:: Yes
[2017-05-31] MEDS ORDERED: LOPERAMIDE HCL 2 MG CAPSULE PO PRN (14:41)
[2017-05-31] MEDS ORDERED: MAG HYDROX/AL HYDROX/SIMETH 30 ML UNIT-DOSE CUP PO PRN (14:41)
[2017-05-31] MEDS ORDERED: hydrOXYzine PAMOATE 50 MG CAPSULE (FP) PO PRN (14:41)
[2017-05-31] MEDS ORDERED: MENTHOL/PHENOL 1 EACH UD MM PRN (14:41)
[2017-05-31] MEDS ORDERED: MAGNESIUM HYDROX 2400MG/30ML ORAL SUSPENSION 30 ML CUP PO PRN (14:41)
[2017-05-31] MEDS ORDERED: MAGNESIUM CITRATE 300 ML BOTTLE PO PRN (14:41)
[2017-05-31] MEDS: GABAPENTIN 400 MG CAPSULE (FP) PO SCH ×2 (17:16→21:06)
[2017-05-31 18:46] LABS: URINE APPEARANCE CLEAR; URINE BILIRUBIN NEGATIVE (NEGATIVE); URINE BLOOD NEGATIVE (NEGATIVE); URINE COLOR YELLOW; URINE GLUCOSE (UA) NEGATIVE (NEGATIVE); URINE KETONE NEGATIVE (NEGATIVE); URINE NITRITE NEGATIVE (NEGATIVE); URINE PROTEIN NEGATIVE (NEGATIVE); URINE UROBILINOGEN NEGATIVE mg/dL (0.2-1.0)
[2017-05-31] MEDS: IBUPROFEN 400 MG TABLET (FP) PO PRN (21:05)
[2017-05-31] MEDS: THIAMINE HCL 100 MG TABLET (FP) PO SCH (21:06)
[2017-05-31 21:18] LABS: URINE LEUK ESTERASE Negative (NEGATIVE)
[2017-05-31] MEDS ORDERED: QUEtiapine FUMARATE 300 MG TABLET PO ONE (22:15)
[2017-06-01] MEDS: P-EPHED 60MG/TRIPROLIDI 2.5MG TABLET PO PRN ×3 (06:22→21:04)
[2017-06-01] MEDS: GABAPENTIN 400 MG CAPSULE (FP) PO SCH ×3 (06:22→21:02)
[2017-06-01] MEDS: PRENATAL VITAMINS W/ FOLIC ACID TABLET (FP) PO SCH (09:36)
[2017-06-01 10:15] LABS: MCH 23.1 pg (25.7-33.7); MEAN CELL VOLUME 72.1 fl (80-96); MEAN PLT VOLUME 8.6 fl (7.5-11.1); PLATELET COUNT 265 K/MM3 (134-434); RDW 17.4 % (11.9-15.9); WHITE BLOOD COUNT 9.1 K/mm3 (4.0-10.0)
[2017-06-01] MEDS: FLUoxetine HCL 20 MG CAPSULE (FP) PO SCH (10:25)
[2017-06-01] MEDS: IBUPROFEN 400 MG TABLET (FP) PO PRN (10:27)
[2017-06-01 10:33] LABS: ALBUMIN 3.2 g/dl (3.4-5.0); ALK PHOS 67 U/L (45-117); ANION GAP 4 (8-16); BILIRUBIN,TOTAL 0.5 mg/dL (0.2-1.0); CALCIUM 8.3 mg/dL (8.5-10.1); CO2 28 mmol/L (21-32); CREATININE 0.8 mg/dL (0.7-1.3); GLUCOSE,RANDOM 165 mg/dL (74-106); SGOT/AST 16 U/L (15-37); SGPT/ALT 107 U/L (12-78); TOT PROT 6.7 g/dl (6.4-8.2)
[2017-06-01] MEDS: ACETAMINOPHEN 325 MG TABLET (FP) PO PRN (19:55)
[2017-06-01] MEDS: THIAMINE HCL 100 MG TABLET (FP) PO SCH (21:02)
[2017-06-01] MEDS ORDERED: QUEtiapine FUMARATE 200 MG TABLET PO SCH (22:00)
--- NOTE | 2017-06-01 22:39 | EKG ---
Test Reason : Blood Pressure : / mmHG Vent. Rate : 095 BPM Atrial Rate : 095 BPM P-R Int : 176 ms QRS Dur : 104 ms QT Int : 368 ms P-R-T Axes : 064 -02 054 degrees QTc Int : 462 ms NORMAL SINUS RHYTHM RSR' OR QR PATTERN IN V1 SUGGESTS RIGHT VENTRICULAR CONDUCTION DELAY WHEN COMPARED WITH ECG OF 02-DEC-2016 19:05, NO SIGNIFICANT CHANGE WAS FOUND Confirmed by ADOLPH MARIE, CLAYTON ([id number]) on 06/01/2017 10:38:33 PM Referred By: Confirmed By:CLAYTON FARFAN MD
[2017-06-02] MEDS: GABAPENTIN 400 MG CAPSULE (FP) PO SCH ×3 (06:14→21:10)
[2017-06-02] MEDS: guaiFENesin/D-METHORPHAN HB 10 ML UNIT-DOSE CUPS PO PRN (06:15)
[2017-06-02] MEDS: FLUoxetine HCL 20 MG CAPSULE (FP) PO SCH (09:38)
[2017-06-02] MEDS: PRENATAL VITAMINS W/ FOLIC ACID TABLET (FP) PO SCH (09:38)
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
--- NOTE | 2017-06-02 11:52 | PN ---
[facility] Progress Note Note: coughing,yellowish mucous,nasal congestion, lung clear bronchitis amoxicillin 500 mgs po tid for 7 days flonase nasal spray both nostril fluid observation
[2017-06-02] MEDS: FLUTICASONE PROP 0.05% 16 GM NASAL SPRAY NS SCH ×2 (12:55→21:12)
[2017-06-02] MEDS: AMOXICILLIN 500 MG CAPSULE (FP) PO SCH ×2 (13:00→21:10)
[2017-06-02] MEDS: THIAMINE HCL 100 MG TABLET (FP) PO SCH (21:10)
[2017-06-02] MEDS: DIVALPROEX SODIUM 500 MG TABLET E.C. PO SCH (21:12)
[2017-06-02] MEDS: QUEtiapine FUMARATE 300 MG TABLET PO SCH (21:12)
[2017-06-02] MEDS: NICOTINE POLACRILEX 2 MG GUM BUC PRN (21:13)
[2017-06-03] MEDS: GABAPENTIN 400 MG CAPSULE (FP) PO SCH ×3 (06:44→21:11)
[2017-06-03] MEDS: AMOXICILLIN 500 MG CAPSULE (FP) PO SCH ×3 (06:44→21:11)
[2017-06-03] MEDS: P-EPHED 60MG/TRIPROLIDI 2.5MG TABLET PO PRN (07:26)
[2017-06-03] MEDS: FLUoxetine HCL 20 MG CAPSULE (FP) PO SCH (09:52)
[2017-06-03] MEDS: DIVALPROEX SODIUM 500 MG TABLET E.C. PO SCH ×2 (09:52→21:11)
[2017-06-03] MEDS: ACETAMINOPHEN 325 MG TABLET (FP) PO PRN (09:53)
[2017-06-03] MEDS: PRENATAL VITAMINS W/ FOLIC ACID TABLET (FP) PO SCH (09:53)
[2017-06-03] MEDS: FLUTICASONE PROP 0.05% 16 GM NASAL SPRAY NS SCH ×2 (09:54→21:11)
[2017-06-03] MEDS: NICOTINE POLACRILEX 2 MG GUM BUC PRN (15:49)
[2017-06-03] MEDS: guaiFENesin/D-METHORPHAN HB 10 ML UNIT-DOSE CUPS PO PRN (15:49)
[2017-06-03] MEDS: THIAMINE HCL 100 MG TABLET (FP) PO SCH (21:11)
[2017-06-03] MEDS: QUEtiapine FUMARATE 300 MG TABLET PO SCH (21:11)
[2017-06-04] MEDS: GABAPENTIN 400 MG CAPSULE (FP) PO SCH ×3 (07:02→21:11)
[2017-06-04] MEDS: AMOXICILLIN 500 MG CAPSULE (FP) PO SCH ×3 (07:02→21:11)
[2017-06-04] MEDS: FLUTICASONE PROP 0.05% 16 GM NASAL SPRAY NS SCH ×2 (09:53→21:12)
[2017-06-04] MEDS: DIVALPROEX SODIUM 500 MG TABLET E.C. PO SCH ×2 (09:53→21:12)
[2017-06-04] MEDS: FLUoxetine HCL 20 MG CAPSULE (FP) PO SCH (09:53)
[2017-06-04] MEDS: PRENATAL VITAMINS W/ FOLIC ACID TABLET (FP) PO SCH (09:53)
[2017-06-04] MEDS: NICOTINE POLACRILEX 2 MG GUM BUC PRN ×2 (09:56→17:27)
[2017-06-04] MEDS: QUEtiapine FUMARATE 300 MG TABLET PO SCH (21:11)
[2017-06-04] MEDS: THIAMINE HCL 100 MG TABLET (FP) PO SCH (21:11)
[2017-06-05] MEDS: GABAPENTIN 400 MG CAPSULE (FP) PO SCH ×3 (06:43→21:14)
[2017-06-05] MEDS: AMOXICILLIN 500 MG CAPSULE (FP) PO SCH ×3 (06:44→21:14)
[2017-06-05] MEDS: FLUoxetine HCL 20 MG CAPSULE (FP) PO SCH (09:46)
[2017-06-05] MEDS: DIVALPROEX SODIUM 500 MG TABLET E.C. PO SCH ×2 (09:46→21:14)
[2017-06-05] MEDS: PRENATAL VITAMINS W/ FOLIC ACID TABLET (FP) PO SCH (09:46)
[2017-06-05] MEDS: FLUTICASONE PROP 0.05% 16 GM NASAL SPRAY NS SCH ×2 (09:46→21:15)
[2017-06-05] MEDS: NICOTINE POLACRILEX 2 MG GUM BUC PRN (18:01)
[2017-06-05] MEDS: NICOTINE 14 MG/24 HOURS TOPICAL PATCH TD SCH (18:01)
[2017-06-05] MEDS: QUEtiapine FUMARATE 300 MG TABLET PO SCH (21:14)
[2017-06-05] MEDS: THIAMINE HCL 100 MG TABLET (FP) PO SCH (21:14)
[2017-06-05] MEDS: ACETAMINOPHEN 325 MG TABLET (FP) PO PRN (23:36)
[2017-06-06] MEDS: AMOXICILLIN 500 MG CAPSULE (FP) PO SCH ×2 (06:43→13:55)
[2017-06-06] MEDS: GABAPENTIN 400 MG CAPSULE (FP) PO SCH ×2 (06:44→13:55)
[2017-06-06 06:45] VITALS: BP 139/87; PULSE 92; TEMP 98.3
[2017-06-06] MEDS: DIVALPROEX SODIUM 500 MG TABLET E.C. PO SCH (09:37)
[2017-06-06] MEDS: FLUoxetine HCL 20 MG CAPSULE (FP) PO SCH (09:37)
[2017-06-06] MEDS: NICOTINE 14 MG/24 HOURS TOPICAL PATCH TD SCH (09:37)
[2017-06-06] MEDS: PRENATAL VITAMINS W/ FOLIC ACID TABLET (FP) PO SCH (09:37)
[2017-06-06] MEDS: FLUTICASONE PROP 0.05% 16 GM NASAL SPRAY NS SCH (09:37)
--- NOTE | 2017-06-06 22:36 | PN ---
S Progress Note Note: received nurse call that the patient had been early discharge today 06/06/17
--- NOTE | 2017-06-07 10:55 | PN ---
S Progress Note Note: was infromed by medical staff that patient left AMA on 06/06/17, scripts e- transferred to his pharmacy
== END 2017-06-06 19:40 | disposition left against medical advice (07) | DRG 770 ==
LOC: YASAS 11:46 → Y5N 14:13
PROVIDERS: ADMIT Psychiatry & Neurology Psychiatry; ATTEND Psychiatry & Neurology Psychiatry
PROC: HZ42ZZZ Group Counseling for Substance Abuse Treatment, Cognitive-Behavioral (ICD-10-PCS; principal; 2017-05-31)
DX: F10.20 Alcohol dependence, uncomplicated (principal); F14.20 Cocaine dependence, uncomplicated; F17.213 Nicotine dependence, cigarettes, with withdrawal; F25.9 Schizoaffective disorder, unspecified
CPT/HCPCS: 36415; 80053; 81003; 85027; 86593; 93005; 93010